=== PATIENT | female | born 1985 | race Asian ===

== ENCOUNTER 2016-11-28 12:29 | Inpatient (IN) | payer BC ==
[2016-11-28] MEDS: D5LR 1000 ML BAG* 1,000 ML IV SCH ×2 (13:02→13:50)
[2016-11-28] MEDS ORDERED: OBEPIDURAL* 250 ML ONE (13:13)
[2016-11-28 13:21] LABS: Hematocrit 42 % (35-47); Hemoglobin 13.9 g/dl (12.0-16.0); Mean Corpuscular HGB Conc 33 g/dl (31-36); Mean Corpuscular Hemoglobin 32 pg (27-31); Mean Corpuscular Volume 95 fL (80-97); Mean Platelet Volume 9 um3 (7.4-10.4); Red Cell Distribution Width 13 % (10.5-15); White Blood Count 10.4 10^3/ul (3.5-10.8)
[2016-11-28] MEDS ORDERED: Famotidine TAB* 20 MG PO PRN (13:43)
[2016-11-28] MEDS ORDERED: Sodium Citrate/Citric Acid* 15 ML UDC PO PRN (13:43)
[2016-11-28] MEDS ORDERED: Phenylephrine IV* 40 MCG/ML 10 ML SYRINGE IV PUSH PRN ×2 (13:43)
[2016-11-28] MEDS ORDERED: EPHEDrine (Pressors)* 50 MG/ML VIAL IV PUSH PRN ×2 (13:43)
[2016-11-28] MEDS ORDERED: OBEPIDURAL* 250 ML EPIDURAL SCH (14:00)
[2016-11-28] MEDS ORDERED: Oxytocin in LR* 20 UNITS/1,000 ML BAG IVPB ONE (16:17)
[2016-11-28] MEDS ORDERED: Witch Hazel PAD* JAR TOPICAL PRN (17:05)
[2016-11-28] MEDS ORDERED: Acetaminophen TAB* 325 MG PO PRN (17:05)
[2016-11-28] MEDS ORDERED: Dibucaine 1% 28.35 GM TUBE PR PRN (17:05)
[2016-11-28] MEDS ORDERED: Glycerin ADULT SUPP PR PRN (17:05)
[2016-11-28] MEDS ORDERED: Simethicone TAB* 80 MG TAB.CHEW PO SCH (17:30)
[2016-11-28] MEDS ORDERED: Oxytocin in LR* 20 UNITS/1,000 ML BAG IVPB SCH (18:00)
[2016-11-28] MEDS: Docusate CAP* 100 MG PO SCH (20:26)
[2016-11-28] MEDS: Ibuprofen TAB* 600 MG PO PRN (20:26)
[2016-11-29 06:37] LABS: Hematocrit 33 % (35-47); Hemoglobin 11.2 g/dl (12.0-16.0); Mean Corpuscular HGB Conc 34 g/dl (31-36); Mean Corpuscular Hemoglobin 32 pg (27-31); Mean Corpuscular Volume 95 fL (80-97); Mean Platelet Volume 8 um3 (7.4-10.4); Red Cell Distribution Width 14 % (10.5-15); White Blood Count 13.8 10^3/ul (3.5-10.8)
[2016-11-29] MEDS: Ibuprofen TAB* 600 MG PO PRN ×3 (08:05→20:55)
[2016-11-29] MEDS: Docusate CAP* 100 MG PO SCH ×3 (08:06→20:55)
[2016-11-29] MEDS ORDERED: Ferrous Gluconate TAB* 324 MG TAB PO SCH (09:00)
[2016-11-29 19:22] VITALS: BP 117/68
[2016-11-30] MEDS: Ibuprofen TAB* 600 MG PO PRN ×2 (03:04→09:57)
[2016-11-30] MEDS: Docusate CAP* 100 MG PO SCH (09:57)
== END 2016-11-30 16:00 | disposition home or self-care (01) | DRG 560 ==
LOC: MCHOBOUT 12:29 → MCHOB 12:52
PROVIDERS: ADMIT Midwife; ATTEND Obstetrics & Gynecology
PROC: 10E0XZZ Delivery of Products of Conception, External Approach (ICD-10-PCS; principal; 2016-11-28)
PROC: 0HQ9XZZ Repair Perineum Skin, External Approach (ICD-10-PCS; 2016-11-28)
DX: O70.0 First degree perineal laceration during delivery (principal); E73.9 Lactose intolerance, unspecified; Z3A.38 38 weeks gestation of pregnancy; Z37.0 Single live birth
CPT/HCPCS: 36415; 85025; 86850; 86900; 86901; A9270-GY